=== PATIENT | male | born 1965 | race American Indian/Alaskan Native ===

== ENCOUNTER 2021-08-15 16:42 | Inpatient (IN) | payer MEDICAID ==
[2021-08-15] MEDS ORDERED: ONDANSETRON 4 MG ODT TAB PO STA (22:44)
--- NOTE | 2021-08-15 22:48 | Event Note ---
Date: 08/15/21 55-year-old gentleman presenting with nausea and vomiting and abdominal cramping. Check labs, EKG, x-ray. Provide supportive care. Detailed history and physical to be performed by myself
[2021-08-15 23:23] LABS: Basophils % (Auto) 0.2 % (0.0-1.8); Eosinophils % (Auto) 0.2 % (0.0-4.3); Hematocrit 42.8 % (35.5-45.6); Hemoglobin 15.2 gm/dl (11.8-15.2); Lymphocytes % (Auto) 23.3 % (13.4-35.0); Mean Corpuscular HGB Conc 36 % (32-34); Mean Corpuscular Volume 92 fl (84-94); Monocytes # (Auto) 0.8 K/mm3 (0.0-0.8); Monocytes % (Auto) 8.9 % (0.0-7.3); Platelet Count 244 K/mm3 (140-440); Red Blood Count 4.64 M/mm3 (3.65-5.03); Red Cell Distribution Width 13.5 % (13.2-15.2)
[2021-08-15] MEDS ORDERED: ACETAMINOPHEN 325 MG TAB PO ONE (23:24)
[2021-08-15] MEDS ORDERED: PANTOPRAZOLE 40 MG TAB PO ONE (23:24)
--- NOTE | 2021-08-15 23:25 | Emergency Department Report ---
ED General Adult HPI - General Chief complaint: Nausea/Vomiting/Diarrhea Stated complaint: VOMITING Time Seen by Provider: 08/15/21 23:15 Source: patient, RN notes reviewed, old records reviewed Mode of arrival: Ambulatory Limitations: No Limitations - History of Present Illness Initial comments: This patient is a 55-year-old gentleman with a history of hypertension and tobacco use, who presents to the ER today with a complaint of abdominal cramping, nausea and vomiting, and substernal discomfort. The symptoms have been going on for 3 to 4 days. Denies headache, neck pain, testicular pain, and dysuria. He denies toxic alcohol ingestion. He is defecating and passing gas. He is urinating. To the best of his knowledge, he does not have a history of renal insufficiency. Denies DVT/PE risk factors. -: Gradual, days(s) Radiation: abdomen (Abdomen, epigastric) Severity scale (0 -10): 0 Quality: aching Consistency: intermittent Improves with: rest Worsens with: other (Worsens with eating and drinking) - Related Data Previous Rx's Medication Instructions Recorded Last Taken Type diphenhydrAMINE [Benadryl] 25 mg PO QHS PRN #15 capsule 04/07/13 Unknown Rx predniSONE [Deltasone] 1 tab PO TID #11 tablet 04/07/13 Unknown Rx Famotidine [Pepcid] 20 mg PO BID #40 tablet 10/11/14 Unknown Rx hydrOXYzine HCL [Atarax] 25 mg PO Q6HR PRN #30 tablet 10/11/14 Unknown Rx lisinopriL [Zestril TAB] 10 mg PO QDAY #30 tablet 10/11/14 Unknown Rx predniSONE [Deltasone] 40 mg PO QDAY #10 tab 10/11/14 Unknown Rx Allergies Allergy/AdvReac Type Severity Reaction Status Date / Time No Known Allergies Allergy Unverified 04/07/13 17:53 ED Review of Systems ROS: Stated complaint: VOMITING Other details as noted in HPI Constitutional: denies: fever Eyes: denies: eye discharge ENT: denies: hearing loss Respiratory: denies: cough Cardiovascular: denies: chest pain Gastrointestinal: abdominal pain, nausea, vomiting. denies: diarrhea Genitourinary: denies: dysuria, testicular pain Musculoskeletal: denies: back pain Hematological/Lymphatic: denies: easy bleeding ED Past Medical Hx - Past Medical History Previous Medical History?: Yes Hx Hypertension: Yes - Surgical History Past Surgical History?: No - Social History Smoking Status: Never Smoker Substance Use Type: None - Medications Home Medications: Home Medications Medication Instructions Recorded Confirmed Last Taken Type diphenhydrAMINE [Benadryl] 25 mg PO QHS PRN #15 capsule 04/07/13 Unknown Rx predniSONE [Deltasone] 1 tab PO TID #11 tablet 04/07/13 Unknown Rx Famotidine [Pepcid] 20 mg PO BID #40 tablet 10/11/14 Unknown Rx hydrOXYzine HCL [Atarax] 25 mg PO Q6HR PRN #30 tablet 10/11/14 Unknown Rx lisinopriL [Zestril TAB] 10 mg PO QDAY #30 tablet 10/11/14 Unknown Rx predniSONE [Deltasone] 40 mg PO QDAY #10 tab 10/11/14 Unknown Rx ED Physical Exam - General Limitations: No Limitations General appearance: alert, in no apparent distress - Head Head exam: Present: atraumatic, normocephalic - Eye Eye exam: Present: normal appearance, EOMI. Absent: nystagmus - ENT ENT exam: Present: normal exam, normal orophraynx, mucous membranes moist, normal external ear exam - Neck Neck exam: Present: normal inspection, full ROM. Absent: tenderness, meningismus - Respiratory Respiratory exam: Present: normal lung sounds bilaterally. Absent: respiratory distress, wheezes, rales, rhonchi, stridor, decreased breath sounds - Cardiovascular Cardiovascular Exam: Present: regular rate, normal rhythm, normal heart sounds. Absent: bradycardia, tachycardia, irregular rhythm, systolic murmur, diastolic murmur, rubs, gallop - GI/Abdominal GI/Abdominal exam: Present: soft. Absent: distended, tenderness, guarding, rebound, rigid, pulsatile mass - Rectal Rectal exam: Present: deferred - Extremities Exam Extremities exam: Present: normal inspection, full ROM, other (2+ pulses noted in the bilateral upper and lower extremities. There is no palpable cord. negative Homans sign. Muscular compartments are soft. The pelvis is stable.). Absent: pedal edema, calf tenderness - Back Exam Back exam: Present: normal inspection. Absent: tenderness, CVA tenderness (R), CVA tenderness (L), paraspinal tenderness, vertebral tenderness - Neurological Exam Neurological exam: Present: alert, oriented X3, other (No facial droop. Tongue midline. Extraocular movements intact bilaterally. Facial sensation intact to light touch in V1, V2, V3 distribution bilaterally. 5 and a 5 strength in 4 extremities. Sensation intact to light touch in 4 extremities.). Absent: motor sensory deficit - Psychiatric Psychiatric exam: Present: normal affect, normal mood - Skin Skin exam: Present: warm, dry, intact, normal color. Absent: rash ED Course Vital Signs 08/15/21 08/15/21 08/15/21 17:45 22:51 23:01 Temperature 97.6 F Pulse Rate 96 H Respiratory 20 Rate Blood Pressure Blood Pressure 138/98 [Right] O2 Sat by Pulse 99 98 95 Oximetry O2 Sat by Pulse Oximetry [ Digit-Finger] 08/15/21 08/15/21 08/15/21 23:08 23:15 23:31 Temperature Pulse Rate Respiratory Rate Blood Pressure Blood Pressure [Right] O2 Sat by Pulse 98 98 98 Oximetry O2 Sat by Pulse Oximetry [ Digit-Finger] 08/15/21 08/16/21 08/16/21 23:51 00:01 00:15 Temperature Pulse Rate Respiratory Rate Blood Pressure 143/87 143/87 Blood Pressure [Right] O2 Sat by Pulse 93 95 98 Oximetry O2 Sat by Pulse Oximetry [ Digit-Finger] 08/16/21 08/16/21 08/16/21 00:31 00:45 01:21 Temperature Pulse Rate Respiratory Rate Blood Pressure 133/92 133/92 151/101 Blood Pressure [Right] O2 Sat by Pulse 95 96 94 Oximetry O2 Sat by Pulse Oximetry [ Digit-Finger] 08/16/21 08/16/21 08/16/21 01:24 01:31 01:37 Temperature Pulse Rate 78 Respiratory Rate Blood Pressure 140/93 Blood Pressure [Right] O2 Sat by Pulse 96 Oximetry O2 Sat by Pulse 99 Oximetry [ Digit-Finger] - ABG Interpretation Ph: 7.532 PCO2: 66.2 PO2: 54 Bicarbonate: 54 Interpretation: abnormal, metabolic alkalosis, other (Hypoxemic respiratory failure) - Pulse Oximetry Interpretation Digit-Finger Initial Pulse Oximetry Readin O2 Sat by Pulse Oximetry: 99 Actions Taken: none ED Medical Decision Making - Lab Data Result diagrams: 08/15/21 23:07 08/15/21 23:07 Vital Signs 08/15/21 08/15/21 17:45 23:08 Temperature 97.6 F Pulse Rate 96 H Respiratory 20 Rate Blood Pressure 138/98 [Right] O2 Sat by Pulse 99 98 Oximetry Lab Results 08/15/21 08/15/21 08/15/21 Range/Units 23:07 23:07 23:07 WBC 8.6 (4.5-11.0) K/mm3 RBC 4.64 (3.65-5.03) M/mm3 Hgb 15.2 (11.8-15.2) gm/dl Hct 42.8 (35.5-45.6) % MCV 92 (84-94) fl MCH 33 H (28-32) pg MCHC 36 H (32-34) % RDW 13.5 (13.2-15.2) % Plt Count 244 (140-440) K/mm3 Lymph % (Auto) 23.3 (13.4-35.0) % Schleicher % (Auto) 8.9 H (0.0-7.3) % Eos % (Auto) 0.2 (0.0-4.3) % Baso % (Auto) 0.2 (0.0-1.8) % Lymph # (Auto) 2.0 (1.2-5.4) K/mm3 Schleicher # (Auto) 0.8 (0.0-0.8) K/mm3 Eos # (Auto) 0.0 (0.0-0.4) K/mm3 Baso # (Auto) 0.0 (0.0-0.1) K/mm3 Seg Neutrophils % 67.4 (40.0-70.0) % Seg Neutrophils # 5.8 (1.8-7.7) K/mm3 Sodium 138 (137-145) mmol/L Potassium 2.3 L* (3.6-5.0) mmol/L Chloride 74.5 L (98-107) mmol/L Carbon Dioxide 50 H* (22-30) mmol/L Anion Gap 16 mmol/L BUN 50 H (9-20) mg/dL Creatinine 3.3 H (0.8-1.3) mg/dL Estimated GFR 23 ml/min BUN/Creatinine Ratio 15 % Glucose 153 H (75-100) mg/dL Calcium 9.0 (8.4-10.2) mg/dL Magnesium 2.00 (1.7-2.3) mg/dL Total Bilirubin 1.00 (0.1-1.2) mg/dL AST 50 H (5-40) units/L ALT 42 (7-56) units/L Alkaline Phosphatase 65 (35-129) units/L Total Creatine Kinase 78 (55-170) units/L Troponin T 0.010 (0.00-0.029) ng/mL Total Protein 8.3 H (6.3-8.2) g/dL Albumin 4.9 (3.9-5) g/dL Albumin/Globulin Ratio 1.4 % - EKG Data -: EKG Interpreted by Mn EKG shows normal: sinus rhythm Rate: normal - EKG Data 08/16/21 00:26 The EKG is interpreted at 23: 01 Sinus rhythm, 81 bpm. Normal axis, left ventricular hypertrophy, nonspecific T wave abnormalities, QTC 5 5 4 ms. Abnormal EKG. Not a STEMI - Radiology Data Radiology results: pending, report reviewed, image reviewed XR abd series w cxr 1V INDICATION / CLINICAL INFORMATION: Epigastric abdominal pain, nausea or vomiting, dom COMPARISON: None available. TECHNIQUE: Flat and erect images of the abdomen with additional AP view of the chest. FINDINGS: Nonobstructive bowel gas pattern. No free air. No specific abnormality of the chest. IMPRESSION: 1. Nonobstructive bowel gas pattern. No acute findings within the chest. Signer Name: Seymour Victor II, MD Signed: 08/15/2021 1 1:06 PM Workstation Name: [id number] CT ABDOMEN AND PELVIS WITHOUT CONTRAST INDICATION / CLINICAL INFORMATION: Patient complains of nausea and vomiting / Renal insuffiency. TECHNIQUE: Axial CT images were obtained through the abdomen and pelvis without IV contrast. All CT scans at this location are performed using CT dose reduction for ALARA by means of automated exposure control. COMPARISON: None available. FINDINGS: LOWER CHEST: No significant abnormality of the imaged chest. LIVER: Probable small collection of focal fat adjacent fissure of the ligamentum teres. Liver otherwise unremarkable. GALLBLADDER: No significant abnormality. BILE DUCTS: No significant abnormality. SPLEEN: No significant abnormality. PANCREAS: Possible small punctate calcification within the main pancreatic duct within the pancreatic head image #61 simple series #2. No evidence of ductal enlargement or peripancreatic fat stranding to suggest inflammatory change. ADRENALS: No significant abnormality. RIGHT KIDNEY / URETER: Multiple small punctate calcifications thought reflect nephroliths and/or medullary calcifications. No hydronephrosis. LEFT KIDNEY / URETER: No significant abnormality. STOMACH / DUODENUM / SMALL BOWEL: No significant abnormality. COLON: Diverticulosis without acute inflammation. APPENDIX: No significant abnormality. PERITONEUM: No free air or free fluid are present within the abdomen or pelvis. LYMPH NODES: No significant adenopathy. AORTA / ARTERIES: No significant abnormality. IVC / VEINS: No significant abnormality. URINARY BLADDER: Partially decompressed. No specific abnormality. REPRODUCTIVE ORGANS: No significant abnormality. ADDITIONAL ABDOMINAL/PELVIC FINDINGS: Multiple intrapelvic phleboliths are present bilaterally. SKELETAL SYSTEM: No significant abnormality. IMPRESSION: 1. Small punctate calcifications within the right kidney thought reflect combination of nephrolith formation as well as medullary calcification. No additional urolithiasis. 2. Diverticulosis without evidence of diverticulitis. No acute findings within the abdomen or pelvis. Signer Name: Seymour Victor II, MD Signed: 08/16/2021 12:22 AM Workstation Name: [id number] - Medical Decision Making Differential diagnosis, including but not limited to: Azotemia, uremia, metabolic acidosis, dehydration, electrolyte derangement, colitis, div erticulitis, obstruction assessment and plan: 55-year-old gentleman with a complaint of abdominal cramping, nausea and vomiting, difficulty tolerating orals,. The emergency room without active vomiting, tolerating p.o. He is afebrile with reassuring vital signs with a soft benign abdomen, without rebound, guarding or peritoneal signs. He looks very well, but his laboratory studies demonstrate marked metabolic derangement, including profound hypokalemia, renal insufficiency, and elevated CO2. Have recommended admission to the medical service for further diagnostic work- up, supportive care and evaluation. The patient is agreeable to this plan of care. Additional laboratory studies ordered, urinalysis pending, ABG on room air pending, doubt obstruction or acute intra-abdominal process, but we will obtain noncontrast CT scan of the abdomen pelvis to further evaluate. Hospital physician, Dr. Zafar to admit to [facility] Critical care attestation.: If time is entered above; I have spent that time in minutes in the direct care of this critically ill patient, excluding procedure time. ED Disposition Clinical Impression: Acute renal failure, Hypokalemia, Nausea and vomiting, Dehydration, Acute abdominal pain Disposition: 09 ADMITTED INPATIENT Is pt being admited?: Yes Does the pt Need Aspirin: No Condition: Good Referrals: PRIMARY CARE,MD [Primary Care Provider] - 3-5 Days
[2021-08-15 23:45] LABS: Albumin 4.9 g/dL (3.9-5)
--- NOTE | 2021-08-16 00:11 | XRay Report ---
XR abd series w cxr 1V INDICATION / CLINICAL INFORMATION: Epigastric abdominal pain, nausea or vomiting, dom COMPARISON: None available. TECHNIQUE: Flat and erect images of the abdomen with additional AP view of the chest. FINDINGS: Nonobstructive bowel gas pattern. No free air. No specific abnormality of the chest. IMPRESSION: 1. Nonobstructive bowel gas pattern. No acute findings within the chest. Signer Name: Seymour Victor II, MD Signed: 08/16/2021 12:06 AM Workstation Name: [id number]
[2021-08-16] MEDS ORDERED: POTASSIUM CHLORIDE ER 20 MEQ TAB PO ONE (00:16)
[2021-08-16 01:14] LABS: Bacteria,Urine 1+ /HPF (Negative); Bilirubin,Urine NEG (Negative); Blood,Urine NEG (Negative); Color,Urine Yellow (Yellow); Hyaline Casts,Urine 7 /LPF; Mucus,Urine FEW /HPF
[2021-08-16 01:19] LABS: Creatinine,Urine 230.3 mg/dL (0.1-20.0)
--- NOTE | 2021-08-16 01:27 | Cat Scan Report ---
CT ABDOMEN AND PELVIS WITHOUT CONTRAST INDICATION / CLINICAL INFORMATION: Patient complains of nausea and vomiting / Renal insuffiency. TECHNIQUE: Axial CT images were obtained through the abdomen and pelvis without IV contrast. All CT scans at this location are performed using CT dose reduction for ALARA by means of automated exposure control. COMPARISON: None available. FINDINGS: LOWER CHEST: No significant abnormality of the imaged chest. LIVER: Probable small collection of focal fat adjacent fissure of the ligamentum teres. Liver otherwi se unremarkable. GALLBLADDER: No significant abnormality. BILE DUCTS: No significant abnormality. SPLEEN: No significant abnormality. PANCREAS: Possible small punctate calcification within the main pancreatic duct within the pancreatic head image #61 simple series #2. No evidence of ductal enlargement or peripancreatic fat stranding t o suggest inflammatory change. ADRENALS: No significant abnormality. RIGHT KIDNEY / URETER: Multiple small punctate calcifications thought reflect nephroliths and/or medu llary calcifications. No hydronephrosis. LEFT KIDNEY / URETER: No significant abnormality. STOMACH / DUODENUM / SMALL BOWEL: No significant abnormality. COLON: Diverticulosis without acute inflammation. APPENDIX: No significant abnormality. PERITONEUM: No free air or free fluid are present within the abdomen or pelvis. LYMPH NODES: No significant adenopathy. AORTA / ARTERIES: No significant abnormality. IVC / VEINS: No significant abnormality. URINARY BLADDER: Partially decompressed. No specific abnormality. REPRODUCTIVE ORGANS: No significant abnormality. ADDITIONAL ABDOMINAL/PELVIC FINDINGS: Multiple intrapelvic phleboliths are present bilaterally. SKELETAL SYSTEM: No significant abnormality. IMPRESSION: 1. Small punctate calcifications within the right kidney thought reflect combination of nephrolith fo rmation as well as medullary calcification. No additional urolithiasis. 2. Diverticulosis without evidence of diverticulitis. No acute findings within the abdomen or pelvis. Signer Name: Seymour Victor II, MD Signed: 08/16/2021 1:22 AM Workstation Name: [id number]
[2021-08-16] MEDS: SODIUM CHLORIDE 0.9% 1000 ML 2,000 ML IV ONE ×2 (01:35→01:36)
[2021-08-16] MEDS: POTASSIUM CHLORIDE 10 MEQ 10 MEQ/100 ML BAG IV SCH ×8 (01:36→15:14)
[2021-08-16] MEDS ORDERED: HYDROmorphone 1 MG/1 ML INJ IV PRN (01:47)
[2021-08-16] MEDS ORDERED: MORPHINE 2 MG/1 ML INJ IV PRN (01:47)
[2021-08-16] MEDS ORDERED: ONDANSETRON 4 MG/2 ML INJ IV PRN ×2 (01:47→09:00)
[2021-08-16] MEDS ORDERED: ACETAMINOPHEN 325 MG TAB PO PRN (01:47)
[2021-08-16] MEDS ORDERED: ALBUTEROL 2.5 MG/3 ML NEBU IH PRN (01:47)
[2021-08-16] MEDS ORDERED: hydrOXYzine HCL 25 MG TAB PO PRN (01:49)
--- NOTE | 2021-08-16 01:55 | History and Physical Report ---
History of Present Illness Date of examination: 08/16/21 Date of admission: 08/16/21 Chief complaint: Nausea, vomiting, diarrhea History of present illness: 55-year-old male with a history of hypertension and tobacco use, who presents to the ER today with a complaint of abdominal cramping, nausea and vomiting, and substernal discomfort have been going on for 3 to 4 days. Denies headache, neck pain, testicular pain, and dysuria. He denies toxic alcohol ingestion. He is defecating and passing gas. He is urinating. To the best of his knowledge, he does not have a history of renal insufficiency. In the emergency room patient is found to have BUN of 50, creatinine of 3.3, potassium 2.3 and bicarb of 50, uric acid 10.8. CT abdomen shows small punctate calcification within the right kidney thought to reflect combination of nephrolith formation as well as medullary calcification no acute finding within the abdomen or pelvis.'s were going to admit the patient we will put the patient on IV fluid, will consult nephrology for evaluation Past History Past Medical History: hypertension Past Surgical History: No surgical history Social history: other (No smoking) Family history: no significant family history Medications and Allergies Allergies Allergy/AdvReac Type Severity Reaction Status Date / Time No Known Allergies Allergy Unverified 04/07/13 17:53 Home Medications Medication Instructions Recorded Confirmed Last Taken Type diphenhydrAMINE [Benadryl] 25 mg PO QHS PRN #15 capsule 04/07/13 Unknown Rx predniSONE [Deltasone] 1 tab PO TID #11 tablet 04/07/13 Unknown Rx Famotidine [Pepcid] 20 mg PO BID #40 tablet 10/11/14 Unknown Rx hydrOXYzine HCL [Atarax] 25 mg PO Q6HR PRN #30 tablet 10/11/14 Unknown Rx lisinopriL [Zestril TAB] 10 mg PO QDAY #30 tablet 10/11/14 Unknown Rx predniSONE [Deltasone] 40 mg PO QDAY #10 tab 10/11/14 Unknown Rx Active Meds: Active Medications Sodium Chloride (Nacl 0.9% 1000 Ml) 2,000 mls @ 999 mls/hr IV BOLUS ONE Stop: 08/16/21 02:16 Last Admin: 08/16/21 01:36 Dose: 999 mls/hr Potassium Chloride (Kcl 10meq/100ml) 10 meq in 100 mls @ 100 mls/hr IV Q1H [place] Stop: 08/16/21 04:59 Last Admin: 08/16/21 01:36 Dose: 100 mls/hr Review of Systems All systems: negative Gastrointestinal: abdominal pain, nausea, vomiting, diarrhea Exam - Constitutional Vitals: Temp Pulse Resp BP Pulse Ox 97.6 F 78 20 140/93 99 08/15/21 17:45 08/16/21 01:37 08/15/21 17:45 08/16/21 01:31 08/16/21 01:49 General appearance: Present: no acute distress, well-nourished - EENT Eyes: Present: PERRL ENT: hearing intact, clear oral mucosa - Neck Neck: Present: supple, normal ROM - Respiratory Respiratory effort: normal Respiratory: bilateral: diminished - Cardiovascular Heart Sounds: Present: S1 & S2. Absent: rub, click - Extremities Extremities: pulses symmetrical, No edema Peripheral Pulses: within normal limits - Abdominal General gastrointestinal: Present: soft, non-tender, non-distended, normal bowel sounds Male genitourinary: Present: normal - Integumentary Integumentary: Present: clear, warm, dry - Musculoskeletal Musculoskeletal: gait normal, strength equal bilaterally - Psychiatric Psychiatric: appropriate mood/affect, intact judgment & insight - Neurologic Neurologic: CNII-XII intact, moves all extremities HEART Score - HEART Score Troponin: Troponin T 0.010 ng/mL (0.00-0.029) 08/15/21 23:07 Results - Labs CBC & Chem 7: 08/15/21 23:07 08/15/21 23:07 Labs: Laboratory Last Values WBC 8.6 K/mm3 (4.5-11.0) 08/15/21 23:07 RBC 4.64 M/mm3 (3.65-5.03) 08/15/21 23:07 Hgb 15.2 gm/dl (11.8-15.2) 08/15/21 23:07 Hct 42.8 % (35.5-45.6) 08/15/21 23:07 MCV 92 fl (84-94) 08/15/21 23:07 MCH 33 pg (28-32) H 08/15/21 23:07 MCHC 36 % (32-34) H 08/15/21 23:07 RDW 13.5 % (13.2-15.2) 08/15/21 23:07 Plt Count 244 K/mm3 (140-440) 08/15/21 23:07 Lymph % (Auto) 23.3 % (13.4-35.0) 08/15/21 23:07 Rooks % (Auto) 8.9 % (0.0-7.3) H 08/15/21 23:07 Eos % (Auto) 0.2 % (0.0-4.3) 08/15/21 23:07 Baso % (Auto) 0.2 % (0.0-1.8) 08/15/21 23:07 Lymph # (Auto) 2.0 K/mm3 (1.2-5.4) 08/15/21 23:07 Rooks # (Auto) 0.8 K/mm3 (0.0-0.8) 08/15/21 23:07 Eos # (Auto) 0.0 K/mm3 (0.0-0.4) 08/15/21 23:07 Baso # (Auto) 0.0 K/mm3 (0.0-0.1) 08/15/21 23:07 Seg Neutrophils % 67.4 % (40.0-70.0) 08/15/21 23:07 Seg Neutrophils # 5.8 K/mm3 (1.8-7.7) 08/15/21 23:07 ABG pH 7.532 (7.320-7.450) H 08/16/21 00:50 POC ABG pCO2 66.2 mmHg (32.0-48.0) H 08/16/21 00:50 POC ABG pO2 54.9 mmHg (83-108) L 08/16/21 00:50 POC ABG HCO3 54.4 08/16/21 00:50 ABG O2 Saturation 90.2 (0-100) 08/16/21 00:50 POC ABG Base Excess 26.2 08/16/21 00:50 ABG Hemoglobin 15.65 (12.0-17.5) 08/16/21 00:50 ABG Oxyhemoglobin 88.4 (94-98) L 08/16/21 00:50 ABG Methemoglobin 0.6 (0.0-1.5) 08/16/21 00:50 Carboxyhemoglobin 1.4 (0.5-1.5) 08/16/21 00:50 FiO2 % 21 08/16/21 00:50 Sodium 138 mmol/L (137-145) 08/15/21 23:07 Potassium 2.3 mmol/L (3.6-5.0) L* 08/15/21 23:07 Chloride 74.5 mmol/L (98-107) L 08/15/21 23:07 Carbon Dioxide 50 mmol/L (22-30) H* 08/15/21 23:07 Anion Gap 16 mmol/L 08/15/21 23:07 BUN 50 mg/dL (9-20) H 08/15/21 23:07 Creatinine 3.3 mg/dL (0.8-1.3) H 08/15/21 23:07 Estimated GFR 23 ml/min 08/15/21 23:07 BUN/Creatinine Ratio 15 % 08/15/21 23:07 Glucose 153 mg/dL (75-100) H 08/15/21 23:07 Uric Acid 10.8 mg/dL (3.5-7.6) H 08/16/21 00:40 Calcium 9.0 mg/dL (8.4-10.2) 08/15/21 23:07 Magnesium 2.00 mg/dL (1.7-2.3) 08/15/21 23:07 Total Bilirubin 1.00 mg/dL (0.1-1.2) 08/15/21 23:07 AST 50 units/L (5-40) H 08/15/21 23:07 ALT 42 units/L (7-56) 08/15/21 23:07 Alkaline Phosphatase 65 units/L (35-129) 08/15/21 23:07 Total Creatine Kinase 78 units/L (55-170) 08/15/21 23:07 Troponin T 0.010 ng/mL (0.00-0.029) 08/15/21 23:07 Total Protein 8.3 g/dL (6.3-8.2) H 08/15/21 23:07 Albumin 4.9 g/dL (3.9-5) 08/15/21 23:07 Albumin/Globulin Ratio 1.4 % 08/15/21 23:07 TSH 1.340 mlU/mL (0.270-4.200) 08/16/21 00:40 Urine Color Yellow (Yellow) 08/16/21 00:59 Urine Turbidity Clear (Clear) 08/16/21 00:59 Urine pH 8.0 (5.0-7.0) H 08/16/21 00:59 Ur Specific [place] 1.016 (1.003-1.030) 08/16/21 00:59 Urine Protein 100 mg/dl mg/dL (Negative) 08/16/21 00:59 Urine Glucose (UA) Neg mg/dL (Negative) 08/16/21 00:59 Urine Ketones Neg mg/dL (Negative) 08/16/21 00:59 Urine Blood Neg (Negative) 08/16/21 00:59 Urine Nitrite Neg (Negative) 08/16/21 00:59 Urine Bilirubin Neg (Negative) 08/16/21 00:59 Urine Urobilinogen 4.0 mg/dL (<2.0) 08/16/21 00:59 Ur Leukocyte Esterase Neg (Negative) 08/16/21 00:59 Urine WBC (Auto) 1.0 /HPF (0.0-6.0) 08/16/21 00:59 Urine RBC (Auto) 3.0 /HPF (0.0-6.0) 08/16/21 00:59 U Epithel Cells (Auto) < 1.0 /HPF (0-13.0) 08/16/21 00:59 Urine Bacteria (Auto) 1+ /HPF (Negative) 08/16/21 00:59 Hyaline Casts 7 /LPF 08/16/21 00:59 Urine Mucus Few /HPF 08/16/21 00:59 Urine Osmolality 461 Mosm/kg 08/16/21 00:59 Urine Creatinine 230.3 mg/dL (0.1-20.0) H 08/16/21 00:59 Urine Sodium 56 mmol/L 08/16/21 00:59 - Imaging and Cardiology CT scan - abdomen: report reviewed Assessment and Plan VTE prophylaxis?: Chemical Plan of care discussed with patient/family: Yes - Patient Problems (1) Acute renal failure Current Visit: Yes Status: Acute Plan to address problem: Admit the patient to the medical telemetry. Cardiac diet. IV fluid half-normal saline at the rate of 125 cc/h. Avoid nephrotoxic drug. Renally dose medication. Nephrology consult. Recheck BMP in the morning (2) Acute abdominal pain Current Visit: Yes Status: Acute Plan to address problem: Pepcid 20 mg IV every 12 hours. Zofran 4 mg IV every 6 hours as needed. Morphine 2 mg IV every 4 hours as needed. Consult GI if needed (3) Nausea and vomiting Current Visit: Yes Status: Acute Plan to address problem: Pepcid 20 mg IV every 12 hours. Zofran 4 mg IV every 6 hours as needed. Morphine 2 mg IV every 4 hours as needed. Consult GI if needed (4) Hypokalemia Current Visit: Yes Status: Acute Plan to address problem: Potassium is supplemented. Recheck BMP in the morning (5) Hypertension Current Visit: Yes Status: Acute Plan to address problem: Hydralazine 10 mg IV every 6 hours as needed. We will monitor the patient closely we will continue the home medication (6) Dehydration Current Visit: Yes Status: Acute Plan to address problem: Half-normal saline at the rate of 125 cc/h. We will rehydrate the patient slowly. Recheck BMP in the morning (7) DVT prophylaxis Current Visit: Yes Status: Acute Plan to address problem: Heparin 5000 units SQ every 12 hours for DVT prophylaxis. Pepcid 20 mg IV twice daily for GI. Patient is a full code
[2021-08-16] MEDS ORDERED: hydrALAZINE 20 MG/1 ML INJ IV PRN (01:57)
[2021-08-16] MEDS ORDERED: SODIUM CHLORIDE 0.45% 1000 ML 1,000 ML IV SCH (02:00)
[2021-08-16] MEDS: IPRATROPIUM/ALBUTEROL SULFATE 3 ML AMPUL.NEB IH SCH ×3 (08:50→14:45)
--- NOTE | 2021-08-16 09:18 | Consultation ---
History of Present Illness - Reason for Consult Consult date: 08/16/21 acute renal failure, hypokalemia - History of Present Illness The patient is a 55 year old male was admitted for worsening abd pain with nausea and vomiting, CT AP was negative for diverticulitis. He was found to have KIMI with hypokalemia and renal consult was requested Past History Past Medical History: hypertension Past Surgical History: No surgical history Social history: other (No smoking) Family history: no significant family history Medications and Allergies Allergies Allergy/AdvReac Type Severity Reaction Status Date / Time No Known Allergies Allergy Unverified 04/07/13 17:53 Home Medications Medication Instructions Recorded Confirmed Last Taken Type diphenhydrAMINE [Benadryl] 25 mg PO QHS PRN #15 capsule 04/07/13 Unknown Rx predniSONE [Deltasone] 1 tab PO TID #11 tablet 04/07/13 Unknown Rx Famotidine [Pepcid] 20 mg PO BID #40 tablet 10/11/14 Unknown Rx hydrOXYzine HCL [Atarax] 25 mg PO Q6HR PRN #30 tablet 10/11/14 Unknown Rx lisinopriL [Zestril TAB] 10 mg PO QDAY #30 tablet 10/11/14 Unknown Rx predniSONE [Deltasone] 40 mg PO QDAY #10 tab 10/11/14 Unknown Rx Active Meds: Active Medications Acetaminophen (Acetaminophen 325 Mg Tab) 650 mg PO Q4H PRN PRN Reason: Pain MILD(1-3)/Fever >100.5/WALTER Albuterol (Albuterol 2.5 Mg/3 Ml Nebu) 2.5 mg IH Q3HRT PRN PRN Reason: Shortness Of Breath Albuterol/Ipratropium (Ipratropium/Albuterol Sulfate 3 Ml Ampul.Neb) 1 ampul IH Q6HRT [place] Last Admin: 08/16/21 08:50 Dose: Not Given Famotidine (Famotidine 20 Mg/2 Ml Inj) 20 mg IV DAILY [facility] Heparin Sodium (Porcine) (Heparin 5,000 Unit/1 Ml Vial) 5,000 unit SUB-Q Q8H [place] Hydralazine HCl (Hydralazine 20 Mg/1 Ml Inj) 10 mg IV Q6H PRN PRN Reason: Blood Pressure Hydromorphone HCl (Hydromorphone 1 Mg/1 Ml Inj) 0.5 mg IV Q3H PRN PRN Reason: Pain , Severe (7-10) Hydroxyzine HCl (Hydroxyzine Hcl 25 Mg Tab) 25 mg PO Q6HR PRN PRN Reason: Itching Potassium Chloride (Kcl 10meq/100ml) 10 meq in 100 mls @ 100 mls/hr IV Q1H [facility] Stop: 08/16/21 13:59 Morphine Sulfate (Morphine 2 Mg/1 Ml Inj) 2 mg IV Q4H PRN PRN Reason: Pain, Moderate (4-6) Ondansetron HCl (Ondansetron 4 Mg/2 Ml Inj) 4 mg IV Q6H PRN PRN Reason: Nausea And Vomiting Potassium Chloride (Potassium Chloride Er 20 Meq Tab) 40 meq PO ONCE@0930 [facility] Stop: 08/16/21 12:30 Sodium Chloride (Sodium Chloride 0.9% 10 Ml Flush Syringe) 10 ml IV BID [place] Sodium Chloride (Sodium Chloride 0.9% 10 Ml Flush Syringe) 10 ml IV PRN PRN PRN Reason: LINE FLUSH Review of Systems All systems: negative (abd pain) Exam - Vital Signs Vital signs: Vital Signs Temp Pulse Resp BP Pulse Ox 97.6 F 96 H 20 138/98 99 08/15/21 17:45 08/15/21 17:45 08/15/21 17:45 08/15/21 17:45 08/15/21 17:45 - General Appearance General appearance: well-developed, well-nourished EENT: ATNC, PERRL, mucous membranes moist Neck: Present: neck supple Respiratory: Clear to Ascultation Heart: regular Gastrointestinal: Present: normoactive bowel sounds Integumentary: no rash, warm and dry Neurologic: no focal deficit, no asterixis Musculoskeletal: Present: other (no edema in BLE) Psychiatric: cooperative Results - Lab Results 08/15/21 23:07 08/16/21 10:47 Most recent lab results ABG pH 7.532 (7.320-7.450) H 08/16/21 00:50 ABG O2 Saturation 90.2 (0-100) 08/16/21 00:50 Calcium 9.0 mg/dL (8.4-10.2) 08/15/21 23:07 Magnesium 2.00 mg/dL (1.7-2.3) 08/15/21 23:07 Urine Creatinine 230.3 mg/dL (0.1-20.0) H 08/16/21 00:59 Urine Sodium 56 mmol/L 08/16/21 00:59 Assessment and Plan (1) Acute renal failure (2) Acute abdominal pain (3) Nausea and vomiting (4) Hypokalemia (5) Hypertension (6) Dehydration No available baseline Cr is available KIMI likely 2/[address] AP -ve for hydronpherosis will change IVF to NS with KCl 20 meq @125 cc/h will check magnesium will check UA and urine lytes daily BMP renally dose meds strict I&O daily weight no indication for [employer]
[2021-08-16] MEDS ORDERED: POTASSIUM CHLORIDE ER 20 MEQ TAB PO SCH (09:30)
[2021-08-16] MEDS ORDERED: FAMOTIDINE 20 MG/2 ML INJ IV SCH ×2 (10:00)
[2021-08-16] MEDS ORDERED: HEPARIN 5,000 UNIT/1 ML VIAL SUB-Q SCH ×2 (10:00)
[2021-08-16] MEDS ORDERED: NACL 0.9%/KCL 20 MEQ 20 MEQ/1,000 ML BAG IV SCH (10:00)
[2021-08-16 11:19] LABS: Calcium 8.3 mg/dL (8.4-10.2)
--- NOTE | 2021-08-16 11:33 | Electrocardiograph Report ---
[facility] Test Date: 2021-08-15 Test Time: 23:01:12 Pat Name: KARISSA MONTE Department: Room: A478 1 Gender: M Tour Operator: JOHNIE : 1965 Requested By: JUAN MIGUEL MCDERMOTT Order Number: [id number] Reading MD: Pj Contreras Measurements Intervals [place] Rate: 81 P: 81 [place]: 158 QRS: 6 QRSD: 96 T: 258 QT: 478 QTc: 554 Interpretive Statements Sinus rhythm Right atrial enlargement Probable LVH with secondary repol abnrm No previous ECG available for comparison Electronically Signed On 08-16-2021 11:33:21 EDT by Pj Contreras
[2021-08-16] MEDS ORDERED: POTASSIUM CHLORIDE ER 20 MEQ TAB PO NR (12:35)
[2021-08-16 14:37] LABS: Calcium 8.4 mg/dL (8.4-10.2)
--- NOTE | 2021-08-16 14:46 | Event Note ---
Date: 08/16/21 Patient was evaluated this morning, and he was found to be hemodynamically stable. #Acute renal failure secondary to vasomotor nephropathyimproving #Dehydrationimproving Creatinine 2.6 (baseline unknown) Continue IV fluid resuscitation Nephrology consulted; appreciate recs; likely secondary to prerenal etiology in the setting of vomiting Renally dose meds and avoid nephrotoxic drugs #Acute abdominal painresolved #nausea and vomitingimproving Continue IV Zofran 4 mg every 6 hours as needed #Hypokalemiaimproving #Metabolic alkalosis Potassium 3.1, HCO3 40 Repleted. Pending repeat BMP. #Coordination of CARE time: 30 minutes. Total visit time equals 30 or more minutes with greater than 50% spent [id number] on coordination of care and counseling. #Discharge planning - Patient is pending resolution of electrolyte abnormalities - Case management has been made aware. - Discharge is tentatively tomorrow
[2021-08-16 16:37] LABS: Creatinine,Urine 83.2 mg/dL (0.1-20.0)
[2021-08-16 16:42] LABS: Creatinine,Urine 82.8 mg/dL (0.1-20.0); Protein/Creatinine Ratio,Urine 0.18
[2021-08-16 16:48] VITALS: BP 155/96
[2021-08-16 16:58] LABS: Bilirubin,Urine NEG (Negative); Blood,Urine NEG (Negative); Color,Urine Yellow (Yellow); Protein,Urine <15 mg/dL mg/dL (Negative)
== END 2021-08-16 17:00 | disposition left against medical advice (07) | DRG 684 ==
LOC: ED 16:42 → 4A 08-16 01:47
PROVIDERS: ADMIT Hospitalist; ATTEND Student in an Organized Health Care Education/Training Program
DX: N17.0 Acute kidney failure with tubular necrosis (principal); E86.0 Dehydration; E87.6 Hypokalemia; I10 Essential (primary) hypertension; Z79.899 Other long term (current) drug therapy; Z53.29 Procedure and treatment not carried out because of patient's decision for other reasons
CPT/HCPCS: 36415; 74022; 74176; 80048; 80053; 81001; 82550; 82570; 82805; 83735; 83935; 84156; 84300; 84443; 84484; 84520; 84550; 85025; 93005; 94640; G0378; J3490; J1644; J3480; J7030; Q0162

== ENCOUNTER 2021-10-10 18:36 | Emergency (ER) | payer MEDICAID ==
[2021-10-10] MEDS ORDERED: LORazepam 2 MG/ML VIAL IV ONE (19:17)
[2021-10-10] MEDS ORDERED: THIAMINE 100 MG, FOLIC ACID 1 MG, MULTIPLE VITAMIN INJ, ADULT 10 ML in SODIUM CHLORIDE ... IV ONE (20:00)
[2021-10-10 20:05] LABS: Basophils % (Auto) 0.1 % (0.0-1.8); Hematocrit 43.6 % (35.5-45.6); Hemoglobin 14.8 gm/dl (11.8-15.2); Lymphocytes # (Auto) 1.9 K/mm3 (1.2-5.4); Lymphocytes % (Auto) 21.5 % (13.4-35.0); Mean Corpuscular HGB Conc 34 % (32-34); Mean Corpuscular Volume 91 fl (84-94); Monocytes # (Auto) 0.8 K/mm3 (0.0-0.8); Monocytes % (Auto) 8.6 % (0.0-7.3); Platelet Count 253 K/mm3 (140-440); Red Blood Count 4.79 M/mm3 (3.65-5.03); Red Cell Distribution Width 13.4 % (13.2-15.2)
[2021-10-10 20:06] LABS: Calcium 9.5 mg/dL (8.4-10.2)
--- NOTE | 2021-10-10 20:53 | Emergency Department Report ---
ED Alcohol HPI - General Chief Complaint: Alcohol Stated Complaint: SHAKING/DIAPHORETIC Time Seen by Provider: 10/10/21 19:17 Source: patient, EMS Mode of arrival: Stretcher Limitations: No Limitations - History of Present Illness Initial Comments: Patient is a 55-year-old male with history of alcoholism brought in by sister for evaluation after neighbor found him shaking and confused. Sister states that she has been living with him for the past several years and that he has never had an episode like this. States he did have an alcoholic beverage earlier today. - Related Data Previous Rx's Medication Instructions Recorded Last Taken Type diphenhydrAMINE [Benadryl] 25 mg PO QHS PRN #15 capsule 04/07/13 Unknown Rx predniSONE [Deltasone] 1 tab PO TID #11 tablet 04/07/13 Unknown Rx Famotidine [Pepcid] 20 mg PO BID #40 tablet 10/11/14 Unknown Rx hydrOXYzine HCL [Atarax] 25 mg PO Q6HR PRN #30 tablet 10/11/14 Unknown Rx lisinopriL [Zestril TAB] 10 mg PO QDAY #30 tablet 10/11/14 Unknown Rx predniSONE [Deltasone] 40 mg PO QDAY #10 tab 10/11/14 Unknown Rx Allergies Allergy/AdvReac Type Severity Reaction Status Date / Time No Known Allergies Allergy Unverified 04/07/13 17:53 ED Review of Systems ROS: Stated complaint: SHAKING/DIAPHORETIC Other details as noted in HPI Constitutional: weakness, other (Tremor) Respiratory: denies: cough, shortness of breath, wheezing Cardiovascular: denies: chest pain, palpitations Gastrointestinal: denies: abdominal pain, nausea, diarrhea Genitourinary: denies: urgency, dysuria Musculoskeletal: denies: back pain, joint swelling, arthralgia Skin: denies: rash, lesions Neurological: denies: headache, numbness, paresthesias Psychiatric: denies: anxiety, depression ED Past Medical Hx - Past Medical History Hx Hypertension: Yes Hx Congestive Heart Failure: No Hx Diabetes: No Hx Asthma: No Hx COPD: No - Social History Smoking Status: Current Every Day Smoker - Medications Home Medications: Home Medications Medication Instructions Recorded Confirmed Last Taken Type diphenhydrAMINE [Benadryl] 25 mg PO QHS PRN #15 capsule 04/07/13 Unknown Rx predniSONE [Deltasone] 1 tab PO TID #11 tablet 04/07/13 Unknown Rx Famotidine [Pepcid] 20 mg PO BID #40 tablet 10/11/14 Unknown Rx hydrOXYzine HCL [Atarax] 25 mg PO Q6HR PRN #30 tablet 10/11/14 Unknown Rx lisinopriL [Zestril TAB] 10 mg PO QDAY #30 tablet 10/11/14 Unknown Rx predniSONE [Deltasone] 40 mg PO QDAY #10 tab 10/11/14 Unknown Rx ED Physical Exam - General Limitations: No Limitations General appearance: in no apparent distress, appears intoxicated - Head Head exam: Present: atraumatic, normocephalic - Eye Eye exam: Present: normal appearance, PERRL, EOMI - Respiratory Respiratory exam: Present: normal lung sounds bilaterally, respiratory distress - Cardiovascular Cardiovascular Exam: Present: regular rate, normal rhythm, normal heart sounds - GI/Abdominal GI/Abdominal exam: Present: soft. Absent: distended, tenderness - Neurological Exam Neurological exam: Present: alert, oriented X3 - Psychiatric Psychiatric exam: Present: normal affect, normal mood - Skin Skin exam: Present: warm, dry, intact, normal color ED Course Vital Signs 10/10/21 10/10/21 19:09 19:15 Pulse Rate 91 H Respiratory 11 L Rate Blood Pressure 129/98 O2 Sat by Pulse 99 98 Oximetry ED Medical Decision Making - Lab Data Result diagrams: 10/10/21 19:39 10/10/21 19:39 - Medical Decision Making Serum alcohol within normal limits. Patient given IV Ativan along with banana bag. He is awake and alert x3. He does have a nonrhythmic tremor diffusely. He denies any symptoms. I feel his symptoms may be related to malnutrition given history of alcoholism and instructed his sister to encourage regular meals. Critical care attestation.: If time is entered above; I have spent that time in minutes in the direct care of this critically ill patient, excluding procedure time. ED Disposition Clinical Impression: Alcoholism, Malnutrition Disposition: 01 HOME / SELF CARE / HOMELESS Is pt being admited?: No Does the pt Need Aspirin: No Condition: Stable Instructions: Alcohol Abuse and Dependence Information, Adult, Finding Treatment for Addiction Time of Disposition: 23:02
[2021-10-10 23:20] VITALS: BP 152/66
== END 2021-10-10 23:20 | disposition home or self-care (01) ==
LOC: ED 18:36
DX: F10.20 Alcohol dependence, uncomplicated (principal); E46 Unspecified protein-calorie malnutrition; I10 Essential (primary) hypertension; F17.290 Nicotine dependence, other tobacco product, uncomplicated
CPT/HCPCS: 36415; 80053; 83690; 85025; 99283; J2060; J3411; J3490; J7030; 80320; G0480